=== PATIENT | female | born 1980 | race Caucasian/White ===

== ENCOUNTER → 2017-08-31 | Outpatient (CLI) | payer BC ==
[~2017-08-31] MED LIST: CETI10TA24 PO
== END | disposition home or self-care (01) ==
LOC: CFH 16:05
PROVIDERS: ATTEND Nurse Practitioner Primary Care
DX: R10.30 Lower abdominal pain, unspecified (principal); E78.2 Mixed hyperlipidemia
CPT/HCPCS: 76830

== ENCOUNTER → 2018-09-12 | Outpatient (CLI) | payer BC | END | disposition home or self-care (01) | LOC: CFH 15:04 | PROVIDERS: ATTEND Nurse Practitioner Primary Care | DX: M50.223 Other cervical disc displacement at C6-C7 level (principal) | CPT/HCPCS: 72141 ==

== ENCOUNTER 2019-05-07 15:18 | Emergency (ER) | payer BC ==
[~2019-05-07] VITALS: Ht 152.4 cm; Wt 73.6 kg
[2019-05-07 16:34] VITALS: BP 148/82
== END 2019-05-07 17:00 | disposition home or self-care (01) ==
LOC: ED 16:52
DX: G44.211 Episodic tension-type headache, intractable (principal)
CPT/HCPCS: 64405; 93005; 99284

== ENCOUNTER 2019-07-22 19:09 | Emergency (ER) | payer BC ==
[~2019-07-22] VITALS: Ht 154.9 cm; Wt 76.2 kg
[2019-07-22] MEDS ORDERED: ONDANSETRON ODT 4 MG PO ONE (19:30)
--- NOTE | 2019-07-22 19:55 | NUR ---
PT ARRIVES TO THE ED WITH GENERALIZED SORE PAIN. PT REPORTS THAT SHE HAS NOT FELT WELL FOR A FEW DAYS. PT DOES NOT HAVE ANY MEDICAL HX. PT DENIES BLOOD IN STOOL OR VOMITTING. DOES REPORT NAUSEA. PT CONNECTED TO MONITORS. PT REPORTS NO TRUAMA. PT ALSO REPORTS NO FEVER. AWAITING FURTHER ORDERS.
[2019-07-22 20:22] LABS: BASOPHILS # (AUTO) 0.04 x10^3/uL (0-0.1); BASOPHILS % (AUTO) 0 % (0-1); EOSINOPHILS # (AUTO) 0.09 x10^3/uL (0-0.4); EOSINOPHILS % (AUTO) 1 % (1-7); LYMPHOCYTES # (AUTO) 4.39 x10^3/uL (1-3.4); LYMPHOCYTES % (AUTO) 42 % (22-44); MD NO; MEAN CORPUSCULAR HEMOGLOBIN 30.9 pg (27.0-34.8); MEAN CORPUSCULAR HGB CONC 34.3 g/dL (32.4-35.8); MEAN PLATELET VOLUME 8.8 fL (7.4-10.4); MONOCYTES # (AUTO) 0.73 x10^3/uL (0.2-0.8); MONOCYTES % (AUTO) 7 % (2-9); NEUTROPHILS # (AUTO) 5.13 x10^3/uL (1.8-6.8); NEUTROPHILS % (AUTO) 49 % (42-75); PLATELET COUNT 193 x10^3/uL (130-400); RED BLOOD COUNT 4.48 x10^6/uL (3.82-5.3); RED CELL DISTRIBUTION WIDTH 13.8 % (9.6-15.2)
[2019-07-22 20:27] LABS: ALANINE AMINOTRANSFERASE 31 U/L (12-78); ALBUMIN 3.8 g/dL (3.4-5.0); ANION GAP 7 mmol/L (5-15); CALCIUM 9.1 mg/dL (8.5-10.1); CHLORIDE 103 mmol/L (98-107); CREATININE 0.81 mg/dL (0.55-1.02)
--- NOTE | 2019-07-22 20:27 | NUR ---
PT DOES NOT WANT ZOFRAN AT THIS TIME.
[2019-07-22 20:31] LABS: ALKALINE PHOSPHATASE 97 U/L (45-117); BILIRUBIN,TOTAL 0.3 mg/dL (0.2-1.0); TOTAL PROTEIN 8.4 g/dL (6.4-8.2)
[2019-07-22 20:50] LABS: FREE T4 (FREE THYROXINE) 1.08 ng/dL (0.76-1.46)
--- NOTE | 2019-07-22 21:05 | NUR ---
ua collected and sent to lab.
[2019-07-22 21:36] LABS: MICROSCOPIC AUTO
[2019-07-22 21:38] LABS: CULTURE INDICATED? YES
[2019-07-22] MEDS ORDERED: NAPROXEN 500 MG TABLET PO ONE (22:00)
--- NOTE | 2019-07-22 22:07 | NUR ---
PT RESTING ON GURNEY. ALL VITALS STABLE. WILL CONTINUE TO MONITOR
[2019-07-22] MEDS ORDERED: NAPROXEN 500 MG TABLET ONE (22:11)
[2019-07-22] MEDS ORDERED: ONDANSETRON ODT 4 MG ONE (22:12)
[2019-07-22 22:15] VITALS: BP 141/85
== END 2019-07-22 22:21 | disposition home or self-care (01) ==
LOC: ED 20:53
DX: R10.84 Generalized abdominal pain (principal); R11.2 Nausea with vomiting, unspecified; M79.18 Myalgia, other site
CPT/HCPCS: 36415; 80053; 81001; 83690; 84439; 84443; 84703; 85025; 87086; 93005; 99284; Q0162

== ENCOUNTER 2020-02-10 09:46 | Emergency (ER) | payer BC ==
[~2020-02-10] VITALS: Ht 152.4 cm; Wt 74.3 kg
[~2020-02-10 09:46] MED LIST changes: -CETI10TA24 PO; +CETI10TA26 PO
--- NOTE | 2020-02-10 10:22 | NUR ---
KRISSY RICO AT BEDSIDE FOR EVAL. THIS IS A 39 YO FEMALE WHO PRESENTS TO THE ER C/O PRESSLEY X 5 DAYS. PT REPORTS INTERMITTENT DIZZINESS, CURRENTLY DENIES. PT DENIES N/V OR VISION CHANGES. PT AO X 4. SKIN PWD. RESP EVEN AND UNLABORED. PT RATES PRESSLEY PAIN AT 9/10. PT ON CONT BP AND O2 MONITORS. SON AT BEDSIDE. CALL LIGHT WITHIN REACH.
[2020-02-10] MEDS ORDERED: DIPHENHYDRAMINE 50 MG/ML, 1ML ONE (10:26)
[2020-02-10] MEDS ORDERED: PROCHLORPERAZINE 5 MG/ML, 2ML ONE (10:26)
[2020-02-10] MEDS ORDERED: SODIUM CHLORIDE 0.9% 1,000ML IVBOLUS ONE (10:30)
[2020-02-10] MEDS ORDERED: DIPHENHYDRAMINE 50 MG/ML, 1ML IVPush ONE (10:30)
[2020-02-10] MEDS ORDERED: PROCHLORPERAZINE 5 MG/ML, 2ML IVPush ONE (10:30)
--- NOTE | 2020-02-10 10:41 | NUR ---
PT MEDICATED ORDERED FOR PRESSLEY, 05/27 PAIN. PT CURRENTLY RESTING ON GURNEY. NO ACUTE DISTRESS NOTED. SKIN PWD. REPS EVEN AND UNLABORED. CALL LIGHT WITHIN REACH. WILL CONT TO MONITOR PT.
--- NOTE | 2020-02-10 11:30 | NUR ---
PT UP TO RESTROOM. STEADY UPON AMBULATION. PT REPORTS THAT HER PRESSLEY IS IMPROVED, DOWN FROM 9/10 TO 6/10 AND IS TOLERABLE. PT AO X 4. SKIN PWD. RESP EVEN AND UNLABORED. CALL LIGHT WITHIN REACH. WILL CONT TO MONITOR PT.
[2020-02-10 12:26] VITALS: BP 101/64
== END 2020-02-10 12:28 | disposition home or self-care (01) ==
LOC: ED 10:19
DX: G44.219 Episodic tension-type headache, not intractable (principal)
CPT/HCPCS: 96374; 96375; 99284; J0780; J1200; J7030

== ENCOUNTER 2020-05-12 17:49 | Emergency (ER) | payer BC ==
[~2020-05-12] VITALS: Ht 152.4 cm; Wt 77.0 kg
--- NOTE | 2020-05-12 18:51 | NUR ---
Patient presents to ER c/o fever, dry cough, loss of taste, and sense of smell which started Thursday 05/03. Denies N/V or sore throat. Patient is in NAD. REspirations even and unlabored.
--- NOTE | 2020-05-12 18:55 | NUR ---
Report received from STEFANO Loyd. This RN to assume care.
[2020-05-12] MEDS ORDERED: KETOROLAC 30 MG/1 ML ONE (19:12)
[2020-05-12 19:15] VITALS: BP 118/67
[2020-05-12] MEDS ORDERED: KETOROLAC 30 MG/1 ML IM ONE (19:30)
--- NOTE | 2020-05-12 19:41 | NUR ---
Discharge instructions given. All questions and concerns addressed. Patient ambulatory with a steady gait. Belongings with patient.
== END 2020-05-12 19:42 | disposition home or self-care (01) ==
LOC: ED 19:10
DX: J12.9 Viral pneumonia, unspecified (principal); J00 Acute nasopharyngitis [common cold]; R05 Cough; R50.9 Fever, unspecified; R00.0 Tachycardia, unspecified
CPT/HCPCS: 71045; 93005; 96372; 99283; J1885